=== PATIENT | male | born 1980 | race Caucasian/White ===

== ENCOUNTER 2019-09-28 14:57 | Emergency (ER) | payer OTHER ==
[~2019-09-28] VITALS: Ht 180.3 cm; Wt 114.3 kg
[2019-09-28 15:37] VITALS: Ht 180.3 cm; Wt 114.3 kg
[2019-09-28 16:12] LABS: PLATELET COUNT 209 x10^3mcL (130-400); RED CELL DISTRIBUTION WIDTH 14.3 % (11.5-14.5)
[2019-09-28 16:13] LABS: BASOPHIL % 0 % (0-2)
[2019-09-28 16:14] LABS: CARBON DIOXIDE 26.4 mmol/L (21-32); CHLORIDE SERUM 103 mmol/L (98-107); CREATININE SERUM 1.3 mg/dL (0.7-1.3); GFR1 > 60 mL/min; GLUCOSE SERUM 134 mg/dL (74-106); POTASSIUM SERUM 4.2 mmol/L (3.5-5.1); SODIUM SERUM 140 mmol/L (136-145)
[2019-09-28 16:19] LABS: ALBUMIN 4.3 g/dL (3.4-5.0); ALKALINE PHOSPHATASE 92 U/L (46-116); ALT/SGPT 104 U/L (16-63); AST/SGOT 36 U/L (15-37); BILIRUBIN TOTAL 0.9 mg/dL (0.20-1.00)
[2019-09-28 16:21] LABS: TOTAL PROTEIN, SERUM 8.3 g/dL (6.4-8.2)
[2019-09-28 19:38] VITALS: BP 120/69
== END 2019-09-28 19:38 | disposition home or self-care (01) ==
LOC: ED 14:57
DX: N20.0 Calculus of kidney (principal)
CPT/HCPCS: J1885

== ENCOUNTER 2019-10-01 11:57 | Emergency (ER) | payer OTHER ==
[~2019-10-01] VITALS: Ht 177.8 cm; Wt 103.0 kg
[2019-10-01 12:14] VITALS: BP 119/89; Ht 177.8 cm; Wt 103.0 kg
== END 2019-10-01 13:08 | disposition home or self-care (01) ==
LOC: ED 11:57
DX: N23 Unspecified renal colic (principal); Z87.442 Personal history of urinary calculi